=== PATIENT | male | born 1995 | race Caucasian/White ===

== ENCOUNTER 2018-01-08 16:12 | Observation (INO) | payer OTHER ==
--- NOTE | 2018-01-08 16:18 | PDOC ---
History of Present Illness - General Chief Complaint: Seizure Stated Complaint: SIEZURES - History of Present Illness Initial Comments: 01/08/18 18:10 22 year old with past medical history of seizures [place] and who presents with 4 seizures today. The patient has had seizures since he was 5 years old and was taking daily Keppra 1000mg + Lacosamide 50mg daily until September when he was increased to Keppra 1500mg + Lacosamide 50mg. Since then the patient has had approx 1 seizure a month. Today the patient denies head trauma during his seizures, but admits to slightly biting his tongue and urinating on himself. He denies drinking alcohol or recreational drug use and denies recent illness, pain with urination, diarrhea, constipation, fevers, chest pain, back pain, abdominal pain or any extremity injuries. He has no other complaints at bedside. PMHX: as in HPI PSHX: none Meds: as in HPI Allergies: none Tob: none Etoh: none Rec drugs: none Past History - Past Medical History Allergies/Adverse Reactions: Allergies Allergy/AdvReac Type Severity Reaction Status Date / Time phenytoin [From Dilantin] Allergy Severe Verified 01/08/18 22:00 Home Medications: Ambulatory Orders Lacosamide [Vimpat -] 50 mg PO AM #14 tab MDD 1 01/09/18 Polyvinyl Alcohol [Artificial Tears] 1 drop OU Q6H PRN #1 drops 01/09/18 levETIRAcetam [Keppra -] 1,000 mg PO BID #60 tablet 01/09/18 COPD: No Seizures: Yes - Suicide/Smoking/Psychosocial Hx Smoking History: Unknown if ever smoked Review of Systems - Review of Systems Able to Perform ROS?: Yes Is the patient limited Nicaraguan proficient: Yes Constitutional: No: Chills, Diaphoresis, Fever HEENTM: No: Blurred Vision, Tinnitus, Hearing Loss Respiratory: No: Cough, Orthopnea, Shortness of Breath Cardiac (ROS): No: Chest Pain, Lightheadedness, Palpitations, Chest Tightness ABD/GI: No: Constipated, Diarrhea, Nausea, Vomiting : No: Burning, Dysuria, Hematuria Musculoskeletal: No: Back Pain Neurological: No: Headache, Numbness, Tingling *Physical Exam - Vital Signs Last Vital Signs Temp Pulse Resp BP Pulse Ox 98 F 115 H 20 98/69 98 01/08/18 16:14 01/08/18 16:14 01/08/18 16:14 01/08/18 16:14 01/08/18 16:14 - Physical Exam Comments: 01/09/18 18:17 GENERAL: Awake, alert, and fully oriented, in no acute distress HEAD: No signs of trauma, normocephalic, atraumatic EYES: PERRLA, EOMI, sclera anicteric, conjunctiva clear ENT: Moist mucosa NECK: Normal ROM LUNGS: No distress, speaks full sentences, clear to auscultation bilaterally HEART: Regular rate and rhythm, normal S1 and S2, no murmurs, rubs or gallops, peripheral pulses normal and equal bilaterally. ABDOMEN: Soft, nontender, normoactive bowel sounds. No guarding, no rebound. No masses EXTREMITIES : Normal inspection, Normal range of motion, no edema. No clubbing or cyanosis. NEUROLOGICAL: Cranial nerves II through XII grossly intact. Normal speech, normal gait, no focal sensorimotor deficits SKIN: Warm, Dry, normal turgor, no rashes or lesions noted ED Treatment Course - LABORATORY CBC & Chemistry Diagram: 01/08/18 16:40 01/09/18 07:20 Medical Decision Making - Medical Decision Making 01/09/18 18:17 22 year old with past medical history of seizures [place] and who presents with 4 seizures today. The patient has had seizures since he was 5 years old and was taking daily Keppra 1000mg + Lacosamide 50mg daily until September when he was increased to Keppra 1500mg + Lacosamide 50mg. Patient's symptom and history are most consistent with inadequate medication dosage vs noncompliance vs lifestyle changes vs substance abuse vs underlying infection/illness that would account for breakthrough seizures, such as PNA, UTI, cardiac arrythmia, head injury/brain bleed. We will evaluate for underlying illness as the patient notes compliance to medications. Also consider lifestyle changes such as sleeping patterns as a possible trigger for breakthrough seizures as the patient recently travelled to the from . Patient Keppra loaded 1000mg and labs were drawn, imaging ordered. Patient signed out to Dr. Morin. *DC/Admit/Observation/Transfer Diagnosis at time of Disposition: Seizure - Discharge Dispostion Condition at time of disposition: Improved - Prescriptions - Referrals - Patient Instructions - Post Discharge Activity
[2018-01-08] MEDS ORDERED: levETIRAcetam 500 MG/5 ML INJECTION VIAL IVPB ONE ×4 (16:25→18:25)
[2018-01-08] MEDS ORDERED: SODIUM CHLORIDE 1,000 ML IV SCH ×2 (16:45→20:45)
[2018-01-08 16:52] LABS: BASO % 0.6 % (0-2.0); EOS % 4.3 % (0-4.5); HEMATOCRIT 48.1 % (35.4-49); HEMOGLOBIN 15.8 GM/dL (11.7-16.9); LYMPH % 24.5 % (8-40); MCH 28.6 pg (25.7-33.7); MCHC 32.8 g/dl (32.0-35.9); MEAN CELL VOLUME 86.9 fl (80-96); MEAN PLT VOLUME 9.5 fl (7.5-11.1); MONO % 6.4 % (3.8-10.2); NEUT % 64.2 % (42.8-82.8); PLATELET COUNT 199 K/MM3 (134-434); RBC 5.54 M/mm3 (4.00-5.60); RDW 13.7 % (11.9-15.9); WHITE BLOOD COUNT 10.2 K/mm3 (4.0-10.0)
[2018-01-08 17:26] LABS: ALBUMIN 4.9 g/dl (3.4-5.0); ALK PHOS 66 U/L (45-117); ANION GAP 11 (8-16); BILIRUBIN,TOTAL 0.3 mg/dL (0.2-1.0); BLOOD UREA NITROGEN 11 mg/dL (7-18); CALCIUM 9.4 mg/dL (8.5-10.1); CHLORIDE 107 mmol/L (98-107); CO2 22 mmol/L (21-32); GLUCOSE,RANDOM 74 mg/dL (74-106); POTASSIUM 4.4 mmol/L (3.5-5.1); SGOT/AST 31 U/L (15-37); SGPT/ALT 59 U/L (12-78); SODIUM 140 mmol/L (136-145); TOT PROT 8.2 g/dl (6.4-8.2)
--- NOTE | 2018-01-08 18:57 | PDOC ---
*Physical Exam - Vital Signs Last Vital Signs Temp Pulse Resp BP Pulse Ox 98 F 115 H 20 98/69 98 01/08/18 16:14 01/08/18 16:14 01/08/18 16:14 01/08/18 16:14 01/08/18 16:14 - Physical Exam Comments: 01/08/18 20:19 Appearance: comfortable. HEENT: head is normocephalic, atraumatic. EOMI. PERRLA. no tongue laceration. Neck: supple. Full ROM. Heart: regular rhythm. no murmurs, rubs or gallops. No pericardial friction rub. Lungs: clear to auscultation bilaterally. no crackles, rhonchi or wheezing. no stridor. Abdomen: soft, nontender. normal bowel sounds. no rebound, guarding, masses. Extremities: Peripheral pulses intact and equal. No lower extremity edema. Neurological: Alert. Oriented x3. CN2-12 intact. 3/5 strength bilateral lower extremities. RLE. 5/5 strength bilateral upper extremities. Full sensation all extremities and bilateral face. Finger to nose normal. Heart Score/ECG Review - ECG Impressions Comment:: 01/08/18 20:55 Rate 93, regular rhythm, normal axis, no acute ST changes. ED Treatment Course - LABORATORY CBC & Chemistry Diagram: 01/08/18 16:40 01/08/18 16:40 - ADDITIONAL ORDERS Additional order review: Laboratory Results 01/08/18 16:40 Sodium 140 Potassium 4.4 Chloride 107 Carbon Dioxide 22 Anion Gap 11 BUN 11 Creatinine 1.0 Creat Clearance w eGFR > 60 Random Glucose 74 Calcium 9.4 Total Bilirubin 0.3 AST 31 ALT 59 Alkaline Phosphatase 66 Total Protein 8.2 Albumin 4.9 01/08/18 16:40 RBC 5.54 MCV 86.9 MCHC 32.8 RDW 13.7 MPV 9.5 Neutrophils % 64.2 Lymphocytes % 24.5 Monocytes % 6.4 Eosinophils % 4.3 Basophils % 0.6 - Medications Given in the ED: ED Medications Discontinued Medications Generic Name Dose Route Start Last Admin Trade Name Freq PRN Reason Stop Dose Admin Levetiracetam 500 mg 01/08/18 16:25 01/08/18 17:02 Keppra Injection - IVPB 01/08/18 16:26 500 mg ONCE ONE Administration Levetiracetam 500 mg 01/08/18 18:09 01/08/18 18:31 Keppra Injection - IVPB 01/08/18 18:10 500 mg ONCE ONE Administration Medical Decision Making - Medical Decision Making 01/08/18 19:[address] Jones: 22 year old male with seizure history (on Keppra 1500 mg daily) presents to ED for multiple seizures today. Pt had a seizure in the waiting room that self- resolved, associated with tongue biting and urination. He stated he usually gets seizures once a month, his Keppra dose was increased from 1000 daily to 1500 daily 09/2017. Pt is from the [facility], visiting here for 9 more days. Pt does not have a neurologist in the states. Pt was given 1000 mg Keppra and IV fluids in the ED. HPI performed via paraprofessional interpreter ([id number]) and pt's uncle. Pt had 4 seizures today. 1 - witnessed by sister - 0300, lasted 4 minutes, 4 minutes to return to baseline. 2 - witnessed by uncle - 0700, lasted 8 minutes, 4 minutes to return to baseline. 3 - unwitnessed 4 - witnessed by uncle - 1400, lasted 3 minutes, 3 minutes to return to baseline. Pt states he has not been sleeping as much as usual over the last few days, and that usually this will precipitate his seizures. He admits to head injury, tongue biting, urination, and bilateral leg weakness. He denies etoh use, illicit drug use, recent illness or infection. Pt is taking 500 mg Keppra + 50 lacosamide in the morning. Pt is taking 1000 mg Keppra in the evening. (Increased from 500 mg 09/2017) Allergies - Dilantin CBC and CMP normal. Pending Keppra level, CXR, CT head. 01/08/18 20:[address] negative. Pt will be admitted to observation for further neurological evaluation and adjustment of his anti-seizure therapy. Paged neuro supply person. Dr. Rivera was paged [phone]. 01/08/18 20:[address] Rivera at [phone], who will be consulting on the case, he states he would like the patient's Keppra dose to be increased to 1000mg BID. I spoke with Dr. Bethea, who will be taking over care for the patient. *DC/Admit/Observation/Transfer Diagnosis at time of Disposition: Seizure - Discharge Dispostion Condition at time of disposition: Stable Decision to Admit order: Yes - Referrals - Patient Instructions - Post Discharge Activity
--- NOTE | 2018-01-08 20:19 | PDOC ---
Attending Attestation - Resident Resident Name: Jo Ann Jones - ED Attending Attestation I have performed the following: I have examined & evaluated the patient, The case was reviewed & discussed with the resident, I agree w/resident's findings & plan, Exceptions are as noted - HPI HPI: 01/08/18 20:18 22-year-old male visiting from [facility] had 4 seizures today. The last one was witnessed in the emergency department with urinary incontinence and minor tongue trauma. History of present illness patient has a history of epilepsy since the age of 7 and has taken Keppra. He denies any other significant past medical history - Physicial Exam PE: 01/08/18 20:19 22-year-old male who is alert and conversant. Head no scalp lacerations, no scalp hematomas. Oral exam shows minor left-sided tongue trauma. Neck is supple Lungs are clear to auscultation bilaterally CVS regular rate and rhythm S1, S2 Abdomen is flat, nontender. Extremities no edema, no is erythema and no clubbing, no No CVA tenderness. Skin is warm and dry, no lacerations. Neuro patient is currently alert and conversant and moving all extremities - Medical Decision Making 01/08/18 20:2 Translation thru the [employer] phone and the patient states that he takes 500 of Keppra in the morning and then in the evening. He takes thousand milligrams of Keppra. Starting in September he seemed to have monthly seizures CAT scan of the head is negative for any acute intracranial pathology, negative skull fracture negative, negative infarction, negative mass IMP poorly controlled epilepsy with multiple seizures. We will admit MedSurg, neuro consult
--- NOTE | 2018-01-08 21:02 | PN ---
Teaching Attending Note Name of Resident: Jono Bethea ATTENDING PHYSICIAN STATEMENT I saw and evaluated the patient. I reviewed the resident's note and discussed the case with the resident. I agree with the resident's findings and plan as documented. SUBJECTIVE: Patient is a 22 year old man with seizure history (on Keppra 1500 mg daily) presents to ED for multiple seizures today. He had a seizure in the waiting room that self-resolved, associated with tongue biting and urination. He stated he usually gets seizures once a month. His Keppra dose was increased from 1000 daily to 1500 daily 09/2017. He is from the [place], visiting here for 9 more days. He does not have a neurologist in the [place]. Complaining of chronic dry eyes. OBJECTIVE: alert and in no acute distress Vital Signs Period Temp Pulse Resp BP Sys/Sanders Pulse Ox Last 24 Hr 98 F 115 20 98/69 98 HEENT: No Jaundice, eye redness or discharge, Blinks a lot. PERRLA, EOMI. Normocephalic, atraumatic. External ears are normal and hearing is grossly intact. No nasal discharge. Neck: Supple, nontender. No palpable adenopathy or thyromegaly. No JVD Chest: Good effort. Clear to auscultation and percussion. Heart: Regular. No S3, rub or murmur Abdomen: Not distended, soft, nontender and no HSM. No rebound or guarding. Normoactive bowel sounds. Ext: Peripheral pulses intact. No leg edema. Skin: Warm and dry. No petechiae, rash or ecchymosis. Neuro: Alert. Oriented x3. CN 2-12 grossly intact. Sensation grossly intact in all four extremities and DTR are symmetric. Current Medications Generic Name Dose Route Start Last Admin Trade Name Freq PRN Reason Stop Dose Admin Sodium Chloride 1,000 mls @ 42 mls/hr 01/08/18 16:45 01/08/18 17:02 Normal Saline - IV 42 mls/hr ASDIR GREGG Administration Sodium Chloride 1,000 mls @ 100 mls/hr 01/08/18 20:45 Normal Saline - IV 01/09/18 06:44 ASDIR GREGG Home Medications Medication Instructions Recorded Lacosamide [Vimpat -] 50 mg PO BID 01/08/18 Levetiracetam 500 mg PO TID 01/08/18 Abnormal Lab Results 01/08/18 16:40 WBC 10.2 H ASSESSMENT AND PLAN: 1. Seizure disorder - No obvious precipitating factors. Keppra level pending. Will treat with Keppra 1000 mg po bid. Mild leukocytosis likely due to stress. Will monitor closely. Implement fall and seizure precautions. Neurology consult pending. Will do basic work up for autoimmune disorder and prescribe artificial tears. 2. DVT prophylaxis - Lovenox 40 mg SQ q 24 hours. 3. Advance directives - Full code
[2018-01-08 21:15] LABS: URINE APPEARANCE CLOUDY; URINE BILIRUBIN NEGATIVE (<2.0 mg/dL); URINE COLOR YELLOW; URINE GLUCOSE (UA) NEGATIVE (NEGATIVE); URINE KETONE NEGATIVE (NEGATIVE); URINE LEUK ESTERASE NEGATIVE (NEGATIVE); URINE NITRITE NEGATIVE (NEGATIVE); URINE UROBILINOGEN NEGATIVE mg/dL (0.2-1.0)
[2018-01-08 21:17] LABS: URINE PROTEIN 2+ (NEGATIVE)
[2018-01-08 21:23] LABS: CALCIUM OXALATE CRYSTALS MODERATE /hpf (NONE SEEN); EPI CELLS RARE /HPF (FEW); URINE BACTERIA RARE /hpf (NONE SEEN); URINE MUCUS MANY
[2018-01-08 21:27] LABS: COCAINE, UR NEGATIVE ng/ml (CUTOFF=300); METHADONE, UR NEGATIVE ng/ml (CUTOFF=300); OPIATES, URI NEGATIVE ng/ml (CUTOFF=300); PHENCYCLIDINE,URINE NEGATIVE ng/ml (CUTOFF=25); URINE AMPHETAMINES NEGATIVE ng/ml (CUTOFF=500); URINE BARBITURATES NEGATIVE ng/ml (CUTOFF=200); URINE BENZODIAZEPINES NEGATIVE ng/ml (CUTOFF=200)
--- NOTE | 2018-01-08 22:00 | HP ---
CHIEF COMPLAINT: seizure PCP: In [facility] HISTORY OF PRESENT ILLNESS: 22 year old male with a hx of seizures presents to the hospital s/p 4 episodes of seizures today. The first one that started this morning, patient reports that he had it for 20 minutes, after which he felt confused for about 6-7 minutes. He states that he had head trauma and bit his tongue. The second and third seizures he reports lasted < 10 minutes. He additionally had a reported seizure in the waiting room of our hospital. He states that he currently feels a little better and only complains of chronic dry eyes, which he states he has been dealing with for many years. Patient states that he initially started having seizures in 2012 and has had multiple EEGs, CTs and MRIs without any source he can remember. He reports being on Keppra 1500 daily (500am and 1500pm) , with his keppra dose recently increased from 500am/500pm. He is also on lacosamide 50am in the morning. States that his last seizure was 6 days ago, and the one prior was mid-December. States that he has recently traveled here from [facility] for vacation and will be going back in 9 days. Denies any sick contacts. Family history significant for epilepsy in 1 uncle and 1 aunt. Denies chest pain, SOB, nausea, vomiting, diarrhea, fevers, chills, changes to his vision, blurry vision, headache. ER course was notable for: (1) WBC 10.2 (2) CT negative (3) Recent Travel: From [facility] 20 days ago PAST MEDICAL HISTORY: seizures PAST SURGICAL HISTORY: denies Social History: Smoking: denies Alcohol: denies Drugs: denies Family History: Epilepsy in 1 uncle and 1 aunt, diabetes in father Allergies No Allergy Information Available Allergy (Verified 01/08/18 16:15) HOME MEDICATIONS: Home Medications Medication Instructions Recorded Lacosamide [Vimpat -] 50 mg PO AM 01/08/18 Levetiracetam 500 mg PO TID 01/08/18 REVIEW OF SYSTEMS CONSTITUTIONAL: Absent: fever, chills, diaphoresis, generalized weakness, malaise, loss of appetite, weight change HEENT: Dry eyes Absent: rhinorrhea, nasal congestion, throat pain, throat swelling, difficulty swallowing, mouth swelling, ear pain, eye pain, visual changes CARDIOVASCULAR: Absent: chest pain, syncope, palpitations, irregular heart rate, lightheadedness , peripheral edema RESPIRATORY: Absent: cough, shortness of breath, dyspnea with exertion, orthopnea, wheezing, stridor, hemoptysis GASTROINTESTINAL: Absent: abdominal pain, abdominal distension, nausea, vomiting, diarrhea, constipation, melena, hematochezia GENITOURINARY: Absent: dysuria, frequency, urgency, hesitancy, hematuria, flank pain, genital pain MUSCULOSKELETAL: Absent: myalgia, arthralgia, joint swelling, back pain, neck pain SKIN: Absent: rash, itching, pallor HEMATOLOGIC/IMMUNOLOGIC: Absent: easy bleeding, easy bruising, lymphadenopathy, frequent infections ENDOCRINE: Absent: unexplained weight gain, unexplained weight loss, heat intolerance, cold intolerance NEUROLOGIC: Absent: headache, focal weakness or paresthesias, dizziness, unsteady gait, seizure, mental status changes, bladder or bowel incontinence PSYCHIATRIC: Absent: anxiety, depression, suicidal or homicidal ideation, hallucinations. PHYSICAL EXAMINATION Vital Signs - 24 hr 01/08/18 16:14 Temperature 98 F Pulse Rate 115 H Respiratory 20 Rate Blood Pressure 98/69 O2 Sat by Pulse 98 Oximetry (%) GENERAL: A&Ox3, no acute distress EYES: PERRLA, EOMI, horizontal nystagmus noted, frequent blinking noted. ENT: Moist mucus membranes NECK: No JVD LUNGS: CTA, no wheezes HEART: RRR, no murmurs ABDOMEN: Soft, nontender, BS present MUSCULOSKELETAL: No CVA Tenderness EXTREMITIES: 2+ pulses, no edema. NEUROLOGICAL: Cranial nerves II-XII intact. No focal deficits. Motor strength 5 /5 bilaterally. Reflexes 2/4 bilaterally. No sensory deficits. No dysmetria noted. Laboratory Results - last 24 hr 01/08/18 01/08/18 01/08/18 16:40 16:40 21:04 WBC 10.2 H RBC 5.54 Hgb 15.8 Hct 48.1 MCV 86.9 MCH 28.6 MCHC 32.8 RDW 13.7 Plt Count 199 MPV 9.5 Absolute Neuts (auto) 6.6 Neutrophils % 64.2 Lymphocytes % 24.5 Monocytes % 6.4 Eosinophils % 4.3 Basophils % 0.6 Nucleated RBC % 0 Sodium 140 Potassium 4.4 Chloride 107 Carbon Dioxide 22 Anion Gap 11 BUN 11 Creatinine 1.0 Creat Clearance w eGFR > 60 Random Glucose 74 Calcium 9.4 Total Bilirubin 0.3 AST 31 ALT 59 Alkaline Phosphatase 66 Total Protein 8.2 Albumin 4.9 Urine Color Yellow Urine Appearance Cloudy Urine pH 5.0 Ur Specific [place] 1.024 Urine Protein 2+ H Urine Glucose (UA) Negative Urine Ketones Negative Urine Blood Negative Urine Nitrite Negative Urine Bilirubin Negative Urine Urobilinogen Negative Ur Leukocyte Esterase Negative Urine WBC (Auto) 4 Urine RBC (Auto) 1 Ur Epithelial Cells Rare Calcium Oxalate Crystal Moderate Urine Bacteria Rare Urine Mucus Many Opiates Screen Methadone Screen Barbiturate Screen Phencyclidine Screen Ur Amphetamines Screen MDMA (Ecstasy) Screen Benzodiazepines Screen Cocaine Screen U Marijuana (THC) Screen 01/08/18 21:04 WBC RBC Hgb Hct MCV MCH MCHC RDW Plt Count MPV Absolute Neuts (auto) Neutrophils % Lymphocytes % Monocytes % Eosinophils % Basophils % Nucleated RBC % Sodium Potassium Chloride Carbon Dioxide Anion Gap BUN Creatinine Creat Clearance w eGFR Random Glucose Calcium Total Bilirubin AST ALT Alkaline Phosphatase Total Protein Albumin Urine Color Urine Appearance Urine pH Ur Specific [place] Urine Protein Urine Glucose (UA) Urine Ketones Urine Blood Urine Nitrite Urine Bilirubin Urine Urobilinogen Ur Leukocyte Esterase Urine WBC (Auto) Urine RBC (Auto) Ur Epithelial Cells Calcium Oxalate Crystal Urine Bacteria Urine Mucus Opiates Screen Negative Methadone Screen Negative Barbiturate Screen Negative Phencyclidine Screen Negative Ur Amphetamines Screen Negative MDMA (Ecstasy) Screen Negative Benzodiazepines Screen Negative Cocaine Screen Negative U Marijuana (THC) Screen Negative ASSESSMENT/PLAN: 22 year old male with a hx of seizures presents to the hospital s/p 4 episodes of seizures #Seizure-like Activity: seem to have currently resolved -patient's home dose of antiepileptics is 500 keppra AM and 1000 keppra PM + 50 lacosamide PM -Dr. Rivera consulted -as per Dr. Rivera, increase dose of keppra to 1000 BID -continue lacosamide 50mg AM -EEG ordered #Dry Eyes: patient has chronic dry eyes for years -artificial tears for now -consider workup in AM for potential causes of dry eyes -may require ophthalmology recommendations #FEN -NS @ 100cc/hr for 1 bag only -lytes wnl -regular diet #Prophylaxis -early ambulation #Disposition -admit obs med surg Visit type - Emergency Visit Emergency Visit: Yes Care time: The patient presented to the Emergency Department on the above date and was hospitalized for further evaluation of their emergent condition. - New Patient This patient is new to me today: Yes Date on this admission: 01/08/18 - Critical Care Critical Care patient: No Hospitalist Screening - Colonoscopy Questionnaire Colonoscopy Questionnaire: Colonoscopy Questionnaire - Patient: 50 - 75 years old and never had a screening colonoscopy: No History of colon or rectal polyps, or CA: No History of IBD, Crohn's disease or UC: No History of abdominal radiation therapy as a child: No - Relative: 1 with colon or rectal CA, or polyps at age 60 or younger: Unknown Colon or rectal CA diagnosed at age 45 or younger: Unknown Multiple relatives with colon or rectal CA: Unknown - Outcome: Screening Result: Negative Screen
[2018-01-08] MEDS ORDERED: levETIRAcetam 500 MG TABLET (FP) PO ONE (22:10)
[2018-01-08] MEDS: levETIRAcetam 500 MG TABLET (FP) PO SCH (22:24)
[2018-01-08] MEDS ORDERED: ARTIFICIAL TEARS (POLYVINYL ALCOHOL 1.4%) OPTH DROPS OU PRN (22:37)
[2018-01-09] MEDS ORDERED: LACOSAMIDE 50 MG TABLET PO SCH (07:00)
[2018-01-09 07:50] VITALS: BMI 28.4
[2018-01-09 09:06] LABS: ANION GAP 7 (8-16); BLOOD UREA NITROGEN 12 mg/dL (7-18); CALCIUM 8.8 mg/dL (8.5-10.1); CHLORIDE 108 mmol/L (98-107); CO2 28 mmol/L (21-32); CREATININE 0.7 mg/dL (0.7-1.3); GLUCOSE,RANDOM 80 mg/dL (74-106); MAGNESIUM 2.2 mg/dL (1.8-2.4); PHOSPHOROUS 3.9 mg/dL (2.5-4.9); POTASSIUM 4.2 mmol/L (3.5-5.1); SODIUM 143 mmol/L (136-145)
[2018-01-09] MEDS: levETIRAcetam 500 MG TABLET (FP) PO SCH (09:07)
--- NOTE | 2018-01-09 11:48 | EKG ---
Test Reason : Blood Pressure : / mmHG Vent. Rate : 093 BPM Atrial Rate : 093 BPM P-R Int : 128 ms QRS Dur : 084 ms QT Int : 334 ms P-R-T Axes : 045 029 027 degrees QTc Int : 415 ms NORMAL SINUS RHYTHM NORMAL ECG NO PREVIOUS ECGS AVAILABLE Confirmed by DEEDEE MICHEL MD ([id number]) on 01/09/2018 11:47:57 AM Referred By: Confirmed By:DEEDEE MICHEL MD
--- NOTE | 2018-01-09 11:48 | CON.NEURO ---
Consult Reason for Consultation:: seizure - History of Present Illness History of Present Illness: 22-year-old right-handed [place]anian-speaking man from the [place] Presented with 4 seizures total from home he is visiting the [place] he lives with his family Patient with a history of epilepsy from the [place] patient presented with no seizure activity patient was stabilized in the medical floor emergency room Patient was hemodynamically stable with no fever patient return to normal activity No report of any recent head trauma. I sawo the patient on the medical floor no report of any seizure overnight We increased his Keppra patient is also on Vimpat - History Source History Provided By: Patient Limitations to Obtaining History: No Limitations - Alcohol/Substance Use Hx Alcohol Use: No - Smoking History Smoking history: Unknown if ever smoked Home Medications - Allergies Allergies/Adverse Reactions: Allergies Allergy/AdvReac Type Severity Reaction Status Date / Time phenytoin [From Dilantin] Allergy Severe Verified 01/08/18 22:00 - Home Medications Home Medications: Ambulatory Orders Lacosamide [Vimpat -] 50 mg PO BID 01/08/18 Levetiracetam 500 mg PO TID 01/08/18 Family Disease History - Family Disease History Family History: Denies (seizure) Review of Systems - Review of Systems Constitutional: reports: No Symptoms Eyes: reports: No Symptoms Neurological: reports: Headache, Incoordination Physical Exam-Neuro Vital Signs: Vital Signs Temperature 98.0 F 01/09/18 06:45 Pulse Rate 70 01/09/18 06:45 Respiratory Rate 18 01/09/18 06:45 Blood Pressure 98/56 01/09/18 06:45 O2 Sat by Pulse Oximetry (%) 98 01/09/18 04:46 Constitutional: Yes: Well Nourished Neck: Yes: WNL Cardiovascular: Yes: WNL Labs: CBC, BMP 01/08/18 16:40 01/09/18 07:20 - Neuro Exam Level Of Consciousness: Yes: Oriented to Person, Oriented to Place, Oriented to Time Eyes: Yes: PERRLA Speech: WNL Dominant Hand: Right Cranial Nerves II-XII Intact: Yes Gag: Present DTR's: 1+ Left Bicep, 1+ Right Bicep, 1+ Left Tricep, 1+ Right Tricep, 1+ Left Achilles, 1+ Right Achilles Response to light touch: Normal Response to pain prick: Normal Response to temperature: Normal Response to vibration: Normal Motor Strength: 3/5: Left Arm, Right Arm, Left Leg, Right Leg Gait: Deferred Imaging - Results Cat Scan: Image Reviewed Problem List - Problems (1) Seizure Assessment/Plan: complex partial seizure 1. 1. Seizure precautions. 2. Increase Keppra to 1000 mg twice daily. 3. Continue Vimpat the same. For deep. EEG. 5. Discharge planning hopefully today Code(s): R56.9 - UNSPECIFIED CONVULSIONS
[2018-01-09 15:45] VITALS: BP 129/66; PULSE 80; TEMP 99.4
--- NOTE | 2018-01-09 17:36 | DS ---
Physical Exam: SUBJECTIVE: Patient is a 22 y/o male from [place] with a history of seizures who is admitted for seizures. Patient reports no seizure activity overnight. Patient has no acute complaints. OBJECTIVE: Vital Signs Period Temp Pulse Resp BP Sys/Sanders Pulse Ox Last 24 Hr 97.8 F-99.4 F 70-86 18-19 95-129/53-79 98-98 PHYSICAL EXAM GENERAL: The patient is awake, alert, and fully oriented, in no acute distress. HEAD: Normal with no signs of trauma. LUNGS: Breath sounds equal, clear to auscultation bilaterally HEART: Regular rate and rhythm ABDOMEN: Soft, nontender, nondistended, normoactive bowel sounds EXTREMITIES: 2+ pulses, warm, well-perfused, no edema. SKIN: Warm, dry, normal turgor, no rashes or lesions noted. LABS Laboratory Results - last 24 hr 01/08/18 01/08/18 01/09/18 21:04 21:04 07:20 Sodium 143 Potassium 4.2 Chloride 108 H Carbon Dioxide 28 D Anion Gap 7 L BUN 12 Creatinine 0.7 Creat Clearance w eGFR > 60 Random Glucose 80 Calcium 8.8 Phosphorus 3.9 Magnesium 2.2 Urine Color Yellow Urine Appearance Cloudy Urine pH 5.0 Ur Specific [place] 1.024 Urine Protein 2+ H Urine Glucose (UA) Negative Urine Ketones Negative Urine Blood Negative Urine Nitrite Negative Urine Bilirubin Negative Urine Urobilinogen Negative Ur Leukocyte Esterase Negative Urine WBC (Auto) 4 Urine RBC (Auto) 1 Ur Epithelial Cells Rare Calcium Oxalate Crystal Moderate Urine Bacteria Rare Urine Mucus Many Opiates Screen Negative Methadone Screen Negative Barbiturate Screen Negative Phencyclidine Screen Negative Ur Amphetamines Screen Negative MDMA (Ecstasy) Screen Negative Benzodiazepines Screen Negative Cocaine Screen Negative U Marijuana (THC) Screen Negative HOSPITAL COURSE: Date of Admission:01/08/18 Patient is a 22 y/o male with a history of seizures who presented to the ED for having a seizure. Patient states that he hit his head and bit his tongue. Neurologist, Dr. Rivera was able to see the patient in the ED and increased his home medication to 1000 mg of Keppra BID. Patient will continue lacosamide 50 mg in the AM. Patient was monitored overnight with no repeat episodes of seizures. patient stable to be discharged home. patent will follow up with his Neurologist in the [facility]. Date of Discharge: 01/09/18 Minutes to complete discharge: 35 Discharge Summary Reason For Visit: SIEZURES Condition: Improved - Instructions Diet, Activity, Other Instructions: You came to the Emergency Department because you were having seizures. We have increased your medications and watched you overnight and your seizures have stopped. You will continue to take: 1000 mg of Keppra in the morning and 1000 mg of Keppra at night You will continue to take 50 mg of lacosamide in the morning. Please follow up with your Neurologist when you return to [place] within the week. Please follow up with your primary care physician within one week. Please return to the Emergency Department if you have any worsening of symptoms , headache, nausea, vomiting, shortness of breath. Referrals: Flavia Rivera MD [Staff Physician] - 1 Week Disposition: HOME - Home Medications Comprehensive Discharge Medication List: Ambulatory Orders Lacosamide [Vimpat -] 50 mg PO AM #14 tab MDD 1 01/09/18 Polyvinyl Alcohol [Artificial Tears] 1 drop OU Q6H PRN #1 drops 01/09/18 levETIRAcetam [Keppra -] 1,000 mg PO BID #60 tablet 01/09/18 This patient is new to me today: No Emergency Visit: No Critical Care patient: No - Discharge Referral Referred to [facility] Med P.C.: No
--- NOTE | 2018-01-09 18:31 | PN ---
Teaching Attending Note Name of Resident: Kathya Aguayo ATTENDING PHYSICIAN STATEMENT I saw and evaluated the patient. I reviewed the resident's note and discussed the case with the resident. I agree with the resident's findings and plan as documented. SUBJECTIVE: OBJECTIVE: Vital Signs Temperature 99.4 F 01/09/18 14:42 Pulse Rate 80 01/09/18 14:42 Respiratory Rate 18 01/09/18 14:42 Blood Pressure 129/66 01/09/18 14:42 O2 Sat by Pulse Oximetry (%) 98 01/09/18 12:00 CBCD WBC 10.2 K/mm3 (4.0-10.0) H 01/08/18 16:40 RBC 5.54 M/mm3 (4.00-5.60) 01/08/18 16:40 Hgb 15.8 GM/dL (11.7-16.9) 01/08/18 16:40 Hct 48.1 % (35.4-49) 01/08/18 16:40 MCV 86.9 fl (80-96) 01/08/18 16:40 MCHC 32.8 g/dl (32.0-35.9) 01/08/18 16:40 RDW 13.7 % (11.9-15.9) 01/08/18 16:40 Plt Count 199 K/MM3 (134-434) 01/08/18 16:40 MPV 9.5 fl (7.5-11.1) 01/08/18 16:40 CMP Sodium 143 mmol/L (136-145) 01/09/18 07:20 Potassium 4.2 mmol/L (3.5-5.1) 01/09/18 07:20 Chloride 108 mmol/L (98-107) H 01/09/18 07:20 Carbon Dioxide 28 mmol/L (21-32) D 01/09/18 07:20 Anion Gap 7 (8-16) L 01/09/18 07:20 BUN 12 mg/dL (7-18) 01/09/18 07:20 Creatinine 0.7 mg/dL (0.7-1.3) 01/09/18 07:20 Creat Clearance w eGFR > 60 (>60) 01/09/18 07:20 Random Glucose 80 mg/dL (74-106) 01/09/18 07:20 Calcium 8.8 mg/dL (8.5-10.1) 01/09/18 07:20 Total Bilirubin 0.3 mg/dL (0.2-1.0) 01/08/18 16:40 AST 31 U/L (15-37) 01/08/18 16:40 ALT 59 U/L (12-78) 01/08/18 16:40 Alkaline Phosphatase 66 U/L (45-117) 01/08/18 16:40 Total Protein 8.2 g/dl (6.4-8.2) 01/08/18 16:40 Albumin 4.9 g/dl (3.4-5.0) 01/08/18 16:40 Home Medications Medication Instructions Recorded Lacosamide [Vimpat -] 50 mg PO AM #14 tab MDD 1 01/09/18 Polyvinyl Alcohol [Artificial 1 drop OU Q6H PRN #1 drops 01/09/18 Tears] levETIRAcetam [Keppra -] 1,000 mg PO BID #60 tablet 01/09/18 ASSESSMENT AND PLAN: Patient is a 22yo male admitted for seizure activity. # Acute seizure , no further seizure , seen by neurologist and increased Keppra to 1000mg po bid , and continue Vimpat 50mg daily Patient will be going back to [place] on the of this month. will follow with his own neurologist in [facility]. Discharge time 35minutes.
== END 2018-01-09 16:35 | disposition home or self-care (01) ==
LOC: JER 16:12 → JERBED 20:53 → J5S 23:34
PROVIDERS: ADMIT Internal Medicine; ATTEND Internal Medicine
PROC: 3E033GC Introduction of Other Therapeutic Substance into Peripheral Vein, Percutaneous Approach (ICD-10-PCS; principal; 2018-01-08)
PROC: 3E0337Z Introduction of Electrolytic and Water Balance Substance into Peripheral Vein, Percutaneous Approach (ICD-10-PCS; 2018-01-08)
DX: G40.89 Other seizures (principal); Z88.8 Allergy status to other drugs, medicaments and biological substances
CPT/HCPCS: 36415; 70450-TC; 71045-TC-FY; 80048; 80053; 80307; 81003; 81015; 83735; 84100; 85025; 87086; 93005; 93010; 99283-25; G0378; J7030